=== PATIENT | male | born 1975 | race Caucasian/White ===

== ENCOUNTER 2020-06-27 18:35 | Emergency (ER) | payer OTHER ==
[~2020-06-27] VITALS: Ht 182.9 cm; Wt 181.4 kg
[~2020-06-27 18:35] MED LIST: ACETAMINOPHEN325 MG PO; Acidophilus La100 GM; CEFA250SU PO; CEPH500 PO; CLIN150 PO; CULTURELLE1 EACH PO; ERGO50000 PO; FURO20 PO; Flomax0.4 MG PO; HYDACE5 PO; HYDCHL25 PO; HYDR10 PO; IBUP800 PO; KETO10 PO; Keflex500 MG; OLME20 PO; OXYC1TAB11; PROM25 PO; Percocet 5-3251 EACH PO; Zofran Odt4 MG SL
[2020-06-27 19:05] LABS: BASOPHILS ABSOLUTE AUTO 0.09 K/mm3 (0.00-0.23); BASOPHILS PERCENT AUTO 1 % (0-2); EOSINOPHILS ABSOLUTE AUTO 0.22 K/mm3 (0.00-0.68); EOSINOPHILS PERCENT AUTO 2 % (0-6); Hematocrit 45.1 % (37.0-53.0); Hemoglobin 14.7 g/dL (13.5-17.5); IMMATURE GRAN ABSOLUTE AUTO 0.05 K/mm3 (0.00-0.10); IMMATURE GRAN PERCENT AUTO 0 % (0-1); LYMPHOCYTES ABSOLUTE AUTO 2.61 K/mm3 (0.84-5.20); LYMPHOCYTES PERCENT AUTO 20 % (21-46); MONOCYTES ABSOLUTE AUTO 0.86 K/mm3 (0.16-1.47); MONOCYTES PERCENT AUTO 7 % (4-13); Mean Corpuscular HGB 27.3 pg (26.0-34.0); Mean Corpuscular HGB Conc 32.6 g/dL (31.5-36.5); Mean Corpuscular Volume 84 fL (80-100); Mean Platelet Volume 11.7 fL (9.1-12.4); NEUTROPHILS ABSOLUTE AUTO 9.18 K/mm3 (1.96-9.15); NEUTROPHILS PERCENT AUTO 71 % (41-73); Platelet Count 240 K/mm3 (150-400); RDW Coefficient Variation 13.5 % (11.7-14.2); RDW Standard Deviation 41.2 fL (35.1-46.3); Red Blood Cell Count 5.39 M/mm3 (4.30-5.90); White Blood Cell Count 13.01 K/mm3 (4.00-11.30)
[2020-06-27 19:37] LABS: Alanine Aminotransfer (ALT/SGP 57 U/L (12-78); Albumin, Blood 3.5 g/dL (3.4-5.0); Albumin/Globulin Ratio 0.9 (0.8-1.8); Alk Phos 158 U/L (50-136); Anion Gap 9 mmol/L (6-16); Aspartate Aminotrans (AST/SGOT 23 U/L (12-37); Bilirubin, Total 0.3 mg/dL (0.1-1.0); Blood Urea Nitrogen 18 mg/dL (8-24); Bun/Creatinine Ratio 16.8 (12.0-20.0); CO2, Blood 22 mmol/L (21-32); Calcium, Blood 9.1 mg/dL (8.5-10.1); Chloride, Blood 110 mmol/L (98-108); Creatinine, Blood 1.07 mg/dL (0.60-1.20); Globulin, Blood 3.9 g/dL (2.2-4.0); Glomerular Filtration Rate >60 (60-); Glucose, Blood 375 mg/dL (70-99); Potassium, Blood 4.3 mmol/L (3.5-5.5); Sodium, Blood 141 mmol/L (136-145); Total Protein, Blood 7.4 g/dL (6.4-8.2)
[2020-06-27 22:49] LABS: Source, Urine Clean Catch
[2020-06-27 22:53] LABS: Bilirubin, Urine Neg (Neg); Blood, Urine Neg (Neg); Glucose Qualitative, Urine 4+ (Neg); Ketones, Urine Neg (Neg); Leukocyte Esterase, Urine Neg (Neg); Nitrite, Urine Neg (Neg); Protein, Urine 1+ (Neg); Urobilinogen, Urine NORM (Normal)
[2020-06-27 23:11] LABS: Color, Urine Yellow (P-Yellow)
[2020-06-27 23:13] LABS: Appearance, Urine Hazy (Clear); Bacteria Few /hpf; Red Blood Cells, Urine 0-2 /hpf (0-2); Squamous Epithelial Cells Few /hpf (Few)
== END 2020-06-27 23:47 | disposition home or self-care (01) ==
LOC: ER 18:35
PROVIDERS: Physician Assistant
DX: N20.0 Calculus of kidney (principal); I10 Essential (primary) hypertension; E66.01 Morbid (severe) obesity due to excess calories; Z68.43 Body mass index [BMI] 50.0-59.9, adult; Z88.0 Allergy status to penicillin; Z88.5 Allergy status to narcotic agent; Z88.8 Allergy status to other drugs, medicaments and biological substances; Z79.899 Other long term (current) drug therapy
CPT/HCPCS: 74176; 76770; 80053; 81001; 83690; 85025; 96374; 96375; 96376; 99284-25; A9270; A9270-GY; J1170; J1885; J2405; J7030

== ENCOUNTER → 2021-01-30 | Outpatient (CLI) | payer OTHER ==
[2021-01-30 10:06] LABS: Alanine Aminotransfer (ALT/SGP 51 U/L (12-78); Albumin, Blood 3.2 g/dL (3.4-5.0); Albumin/Globulin Ratio 0.8 (0.8-1.8); Alk Phos 173 U/L (50-136); Anion Gap 5 mmol/L (6-16); Aspartate Aminotrans (AST/SGOT 32 U/L (12-37); Bilirubin, Total 0.5 mg/dL (0.1-1.0); Blood Urea Nitrogen 13 mg/dL (8-24); Bun/Creatinine Ratio 14.3 (12.0-20.0); CO2, Blood 28 mmol/L (21-32); Calcium, Blood 8.6 mg/dL (8.5-10.1); Chloride, Blood 105 mmol/L (98-108); Creatinine, Blood 0.91 mg/dL (0.60-1.20); Globulin, Blood 3.9 g/dL (2.2-4.0); Glomerular Filtration Rate >60 (60-); Glucose, Blood 351 mg/dL (70-99); Potassium, Blood 4.3 mmol/L (3.5-5.5); Sodium, Blood 138 mmol/L (136-145); Total Protein, Blood 7.1 g/dL (6.4-8.2)
[2021-01-31 19:10] LABS: SEX HORM BINDING GLOB, SERUM 35.7 nmol/L (16.5-55.9)
== END | disposition home or self-care (01) ==
LOC: OLS 07:31 → LAB SHORT 07:31
PROVIDERS: Internal Medicine Endocrinology, Diabetes & Metabolism
DX: E29.1 Testicular hypofunction (principal); E11.9 Type 2 diabetes mellitus without complications
CPT/HCPCS: 36415; 80053; 83036; 84270; 84402; 84403

== ENCOUNTER 2021-04-15 11:52 | Inpatient (IN) | payer OTHER ==
[~2021-04-15] VITALS: Ht 182.9 cm; Wt 176.2 kg
[2021-04-15 13:16] LABS: BASOPHILS ABSOLUTE AUTO 0.11 K/mm3 (0.00-0.23); BASOPHILS PERCENT AUTO 1 % (0-2); EOSINOPHILS ABSOLUTE AUTO 0.04 K/mm3 (0.00-0.68); EOSINOPHILS PERCENT AUTO 0 % (0-6); Hematocrit 43.4 % (37.0-53.0); Hemoglobin 14.5 g/dL (13.5-17.5); IMMATURE GRAN ABSOLUTE AUTO 0.72 K/mm3 (0.00-0.10); IMMATURE GRAN PERCENT AUTO 3 % (0-1); LYMPHOCYTES ABSOLUTE AUTO 1.93 K/mm3 (0.84-5.20); LYMPHOCYTES PERCENT AUTO 9 % (21-46); MONOCYTES ABSOLUTE AUTO 1.23 K/mm3 (0.16-1.47); MONOCYTES PERCENT AUTO 6 % (4-13); Mean Corpuscular HGB 27.5 pg (26.0-34.0); Mean Corpuscular HGB Conc 33.4 g/dL (31.5-36.5); Mean Corpuscular Volume 82 fL (80-100); Mean Platelet Volume 10.2 fL (9.1-12.4); NEUTROPHILS ABSOLUTE AUTO 17.31 K/mm3 (1.96-9.15); NEUTROPHILS PERCENT AUTO 81 % (41-73); NRBC ABSOLUTE 0.09 K/mm3 (0.00-0.02); NRBC Auto 0.4 /100 WBC (0.0-0.2); Platelet Count 306 K/mm3 (150-400); RDW Coefficient Variation 14.1 % (11.7-14.2); RDW Standard Deviation 41.8 fL (35.1-46.3); Red Blood Cell Count 5.28 M/mm3 (4.30-5.90); White Blood Cell Count 21.34 K/mm3 (4.00-11.30)
[2021-04-15 13:29] LABS: PCO2 Arterial 30.6 mmHg (35-45); PO2 Arterial 71.2 mmHg (80-100); pH Blood Arterial 7.42 (7.35-7.45)
[2021-04-15] MEDS ORDERED: AMLO10 PO (13:31)
[2021-04-15] MEDS ORDERED: Clomiphene Citr50 MG PO (13:32)
[2021-04-15] MEDS ORDERED: VENLAFAXINE H37.5 M1 PO (13:32)
[2021-04-15] MEDS ORDERED: VITAMIN D31000 UNI1 PO (13:33)
[2021-04-15 13:56] LABS: C-REACTIVE PROTEIN, EXT RANGE 15.5 mg/dL (0.000-0.300)
[2021-04-15 14:04] LABS: Albumin, Blood 2.2 g/dL (3.4-5.0); Albumin/Globulin Ratio 0.4 (0.8-1.8); Bilirubin, Total 0.9 mg/dL (0.1-1.0); Bun/Creatinine Ratio 12.1 (12.0-20.0); Calcium, Blood 9.1 mg/dL (8.5-10.1); Creatinine, Blood 1.4 mg/dL (0.60-1.20); Globulin, Blood 5.1 g/dL (2.2-4.0); Potassium, Blood 3.8 mmol/L (3.5-5.5); Total Protein, Blood 7.3 g/dL (6.4-8.2)
--- NOTE | 2021-04-15 19:01 | NUR ---
ADMIT PT ARRIVED TO ICU 4 AT 1845. PT ALERT AND ORIENTED, VERY TALKATIVE. WEARING BIPAP. DESATS TO 88% WHEN TALKING, BUT GOES BACK UP TO LOW 90S WHEN QUIET. SR, BP STABLE. IV FLUIDS STARTED. WILL GIVE REPORT TO ONCOMING SHIFT.
[2021-04-15 20:04] LABS: International Normalized Ratio 1.25; Prothrombin Time Results 13.3 Sec (9.7-11.5)
[2021-04-15 22:25] LABS: Source, Urine Clean Catch
[2021-04-15 22:27] LABS: Appearance, Urine Hazy (Clear); Blood, Urine 2+ (Neg); Color, Urine Amber (P-Yellow); Glucose Qualitative, Urine Neg (Neg); Ketones, Urine Neg (Neg); Leukocyte Esterase, Urine 1+ (Neg); Nitrite, Urine Neg (Neg); Protein, Urine 3+ (Neg); Urobilinogen, Urine 1+ (Normal)
[2021-04-15 22:29] LABS: Bilirubin, Urine 1+ (Neg)
[2021-04-15 22:35] LABS: Red Blood Cells, Urine 0-2 /hpf (0-2)
[2021-04-15 22:36] LABS: Bacteria Many /hpf; Granular Casts 0-2 /lpf (0); Hyaline Casts 0-2 /lpf (0-2); Squamous Epithelial Cells Not Seen /hpf (Few); WBC Cast 0-2 /lpf (0)
[2021-04-16 02:24] LABS: BASOPHILS ABSOLUTE AUTO 0.07 K/mm3 (0.00-0.23); BASOPHILS PERCENT AUTO 0 % (0-2); EOSINOPHILS ABSOLUTE AUTO 0.12 K/mm3 (0.00-0.68); EOSINOPHILS PERCENT AUTO 1 % (0-6); Hematocrit 40.7 % (37.0-53.0); Hemoglobin 13.6 g/dL (13.5-17.5); IMMATURE GRAN ABSOLUTE AUTO 0.31 K/mm3 (0.00-0.10); IMMATURE GRAN PERCENT AUTO 2 % (0-1); LYMPHOCYTES ABSOLUTE AUTO 2.24 K/mm3 (0.84-5.20); LYMPHOCYTES PERCENT AUTO 14 % (21-46); MONOCYTES ABSOLUTE AUTO 0.75 K/mm3 (0.16-1.47); MONOCYTES PERCENT AUTO 5 % (4-13); Mean Corpuscular HGB 27.3 pg (26.0-34.0); Mean Corpuscular HGB Conc 33.4 g/dL (31.5-36.5); Mean Corpuscular Volume 82 fL (80-100); Mean Platelet Volume 10.1 fL (9.1-12.4); NEUTROPHILS ABSOLUTE AUTO 13.04 K/mm3 (1.96-9.15); NEUTROPHILS PERCENT AUTO 79 % (41-73); NRBC ABSOLUTE 0.05 K/mm3 (0.00-0.02); NRBC Auto 0.3 /100 WBC (0.0-0.2); Platelet Count 262 K/mm3 (150-400); RDW Coefficient Variation 14.3 % (11.7-14.2); Red Blood Cell Count 4.99 M/mm3 (4.30-5.90); White Blood Cell Count 16.53 K/mm3 (4.00-11.30)
--- NOTE | 2021-04-16 02:29 | NUR ---
AT APROX 2000 PATIENT C/O NAUSEA AND "HEART BURN" DOCTOR TARIQ NOTIFIED AND ORDER OBTAINED FOR PROTONIX, AND OK TO OBTAIN ECHO IN THE MORNING. AT APROX 2100 PATIENT REMOVED BIPAP WITH RT AND PLACED ON 12L/OXY PATIENT HAD 300 CC OF BROWN BILE EMESES AND CONTINUES TO FEEL NAUSEA WITH DRY EAVES. DUE TO DESATING CHANGED TO AIRVO 60L FIO2 60% WITH BIOX 90-93% RESP 30-40. DOCTOR TARIQ GIVEN UPDATE AND NOTIFIED OF PATIENT NOT BEING ABLE TO WEAR BIPAP DUE TO N/V. ZOFRAN INCREASED TO Q4HR. HEPARIN DRIP INFUSING PER PHARMACY. AT 0100 PATIENT VERBALIZED HE IS FEELING BETTER AND ABLE TO ATTEMPT BIPAP AGAIN. PATIENT NOW RESTING QUIETLY WITH BIPAP 11/6 FIO2 60% IN PLACE WITH BIOX 94-96% PATIENT RESP CONTINUE TO BE 30-40'S EVEN WHEN SLEEPING, AWAKENS TO SLIGHT STIMULI.
[2021-04-16 02:43] LABS: Alanine Aminotransfer (ALT/SGP 175 U/L (12-78); Albumin, Blood 2.2 g/dL (3.4-5.0); Albumin/Globulin Ratio 0.5 (0.8-1.8); Alk Phos 78 U/L (50-136); Anion Gap 9 mmol/L (6-16); Aspartate Aminotrans (AST/SGOT 260 U/L (12-37); Bilirubin, Total 0.7 mg/dL (0.1-1.0); Blood Urea Nitrogen 19 mg/dL (8-24); Bun/Creatinine Ratio 16.5 (12.0-20.0); CO2, Blood 25 mmol/L (21-32); Calcium, Blood 8.7 mg/dL (8.5-10.1); Chloride, Blood 105 mmol/L (98-108); Creatinine, Blood 1.15 mg/dL (0.60-1.20); Globulin, Blood 4.5 g/dL (2.2-4.0); Glomerular Filtration Rate >60 (60-); Glucose, Blood 237 mg/dL (70-99); Magnesium, Blood 2.1 mg/dL (1.6-2.4); Potassium, Blood 3.7 mmol/L (3.5-5.5); Sodium, Blood 139 mmol/L (136-145); Total Protein, Blood 6.7 g/dL (6.4-8.2)
[2021-04-16 05:10] LABS: PCO2 Arterial 38.1 mmHg (35-45); PO2 Arterial 72.6 mmHg (80-100); pH Blood Arterial 7.45 (7.35-7.45)
--- NOTE | 2021-04-16 07:19 | NUR ---
SUMMARY PATIENT WITH BIPAP 14/6 FIO2 80% IN PLACE, SLEEPING LIGHTLY T/O MOST OF THE NIGHT. SHORT BREAK FROM BIPAP ON AIRVO 60L FIO2 80% THIS MORNING FOR ORAL CARE AND TO WASH FACE. RAFITA TO FOREHEAD WITH FOAM DRESSING CD&I. PATIENT VERBALIZED NAUSEA BETTER, BUT CONTINUES TO HAVE A SLIGHT FEELING OF HEART BURN. HEPARIN DRIP CONTINUES PER PHARMACY.
--- NOTE | 2021-04-16 07:52 | NUR ---
ASSUMED CARE BEDSIDE REPORT RECIEVED. PT IS LAYING IN BED AWAKE, ALERT, AND ORIENTED. PT ANSWERS QUESTIONS APPROPRIATELY. PT DENIES PAIN, SOB AT REST, OR NAUSEA AT THIS TIME. BIPAP IN PLACE /, FIO2 80%. VITAL SIGNS STABLE. HEPARIN GTT INFUSING AT 17 UNITS/KG/HR AND NS TKO. SABA TEMP PROBE IN PLACE WITH DARK YELLOW URINE OUTPUT NOTED. WILL CONTINUE TO MONITOR.
--- NOTE | 2021-04-16 12:10 | NUR ---
Echocardiogram completed.
--- NOTE | 2021-04-16 19:45 | NUR ---
ASSUMED CARE OF PATIENT AT APPROX 1445; THIS RN AGREES WITH THE PREVIOUS TELECOM FIELD TECHNICIAN. LS REMAIN DIM WITH COARSE IN THE BASES. PT REMAIN ON BIPAP, APPEARS TO TOLERATE IT WELL. PT "SLIGHTLY NAUSOUS, MEDCIATED PER EMAR. ELEVATED NOTED, OTHER VSS. NO OTHER ACUTE CHANGES NOTED. REPORT GIVEN TO ONCOMING RN.
--- NOTE | 2021-04-16 23:12 | NUR ---
SHIFT ASSESSMENT ASSUMED CARE OF PT @ 1900, REPORT FROM INESSA HERRING. PT ALERT AND ORIENTED. SKIN OVERALL C/D/I, DRESSING COVERING WOUND ON NOSE CLEAN. FOLLOWING ALL COMMANDS. PT DENIES DISCOMFORT. PT NPO, WATER AT BEDSIDE FOR MOUTH RINSING. ON BIPAP-14/8 @ 70% c O2 SATS >90%. HEPARIN GTT CHANGED BY PHARMACY TO 21U/KG/HR, CONFIRMED RATE ADJUST WITH EDDIE CRAWFORD. TEMP SABA CATH PATENT, DRAINING YELLOW URINE. CALL LIGHT WITHIN REACH.
[2021-04-17 03:18] LABS: PO2 Arterial 84.7 mmHg (80-100)
[2021-04-17 03:23] LABS: BASOPHILS ABSOLUTE AUTO 0.04 K/mm3 (0.00-0.23); BASOPHILS PERCENT AUTO 0 % (0-2); EOSINOPHILS ABSOLUTE AUTO 0.02 K/mm3 (0.00-0.68); EOSINOPHILS PERCENT AUTO 0 % (0-6); Hematocrit 39.3 % (37.0-53.0); Hemoglobin 12.5 g/dL (13.5-17.5); IMMATURE GRAN ABSOLUTE AUTO 0.54 K/mm3 (0.00-0.10); IMMATURE GRAN PERCENT AUTO 3 % (0-1); LYMPHOCYTES PERCENT AUTO 9 % (21-46); MONOCYTES ABSOLUTE AUTO 1.15 K/mm3 (0.16-1.47); MONOCYTES PERCENT AUTO 6 % (4-13); Mean Corpuscular HGB 26.9 pg (26.0-34.0); Mean Corpuscular HGB Conc 31.8 g/dL (31.5-36.5); Mean Corpuscular Volume 85 fL (80-100); Mean Platelet Volume 10.4 fL (9.1-12.4); NEUTROPHILS PERCENT AUTO 82 % (41-73); NRBC ABSOLUTE 0.02 K/mm3 (0.00-0.02); NRBC Auto 0.1 /100 WBC (0.0-0.2); Platelet Count 293 K/mm3 (150-400); RDW Coefficient Variation 14.5 % (11.7-14.2); RDW Standard Deviation 44.1 fL (35.1-46.3); Red Blood Cell Count 4.65 M/mm3 (4.30-5.90); White Blood Cell Count 18.55 K/mm3 (4.00-11.30)
[2021-04-17 03:42] LABS: Alanine Aminotransfer (ALT/SGP 150 U/L (12-78); Albumin, Blood 2.1 g/dL (3.4-5.0); Albumin/Globulin Ratio 0.5 (0.8-1.8); Alk Phos 75 U/L (50-136); Anion Gap 11 mmol/L (6-16); Aspartate Aminotrans (AST/SGOT 92 U/L (12-37); Bilirubin, Total 0.7 mg/dL (0.1-1.0); Blood Urea Nitrogen 15 mg/dL (8-24); Bun/Creatinine Ratio 16.1 (12.0-20.0); CO2, Blood 24 mmol/L (21-32); Calcium, Blood 8.1 mg/dL (8.5-10.1); Chloride, Blood 105 mmol/L (98-108); Creatinine, Blood 0.93 mg/dL (0.60-1.20); Globulin, Blood 4.4 g/dL (2.2-4.0); Glomerular Filtration Rate >60 (60-); Glucose, Blood 274 mg/dL (70-99); Magnesium, Blood 2.1 mg/dL (1.6-2.4); Phosphorus, Blood 2.2 mg/dL (2.5-4.9); Potassium, Blood 3.5 mmol/L (3.5-5.5); Sodium, Blood 140 mmol/L (136-145); Total Protein, Blood 6.5 g/dL (6.4-8.2)
--- NOTE | 2021-04-17 06:52 | NUR ---
SHIFT SUMMARY PT REMAINS ALERT AND ORIENTED. TOLERATING THE BIPAP WELL. GIVEN MULTIPLE BREAKS T/O THE NIGHT, ABLE TO TOLERATE AIRVO FOR ABOUT 10 MINUTES BEFORE REQUESTING THE BIPAP. PT SHIFTING HIPS, TURNING GENTLY FROM SIDE TO SIDE, AT THIS TIME NOT WILLING TO TOLERATE HARD TURNS. PT USING REDIPORT SUCTION FOR BIPAP, MODERATE AMNT WHITE SECRETIONS. SABA CATH DRAINING DARK URINE. NO BM DURING THE NIGHT.
--- NOTE | 2021-04-17 08:21 | NUR ---
ORDERS GIVEN FROM DR. FARRAR TO SWITCH FROM HEPARIN GTT TO XARELTO, DISCUSSED WITH DR. FARRAR AND WITH PHARMACY, WILL TURN OF HEPARIN GTT 2 HRS AFTER XARELTO GIVEN.
--- NOTE | 2021-04-17 08:26 | NUR ---
PT ASSISTED TO RECLINER, TOLERATED WELL WITH STANDBY ASSIST FOR LINE MANAGEMENT. PT IS ALERT AND ORIENTED, COOPERATIVE WITH CARE. DISCUSSED IMPORTANCE OF REPOSITIONING TO PRONE, SIDE TO SIDE, AND UP TO RECLINER FOR MAKING PROGRESS DURING HOSPITALIZATION FOR COVID. PT AGREED TO STAY UP IN RECLINER TOLERATED. PT SWITCHED OVER TO AIRVO WITH RT AT BEDSIDE, TOLERATING WELL WITH O2 SATS OF >95% AT THIS TIME. PT DENIES NAUSEA AT THIS TIME.
--- NOTE | 2021-04-17 17:58 | NUR ---
SHIFT SUMMARY NO ACUTE EVENTS THIS SHIFT. PT STAYED UP IN RECLINER UNTIL AFTER LUNCH, THEN REQUESTED TO GET BACK TO BED. PT WAS ABLE TO TOLERATE AIRVO FOR REST OF SHIFT WITH O2 SATS REMAINING >90%. PT'S BLOOD SUGAR WAS ELEVATED THIS SHIFT, DR. FARRAR NOTIFIED WITH CBG OF 425 AND 430, INSULIN ORDERS GIVEN AND ADMINISTERED PER EMAR. PT DENIED PAIN THIS SHIFT, COMPLAINED ONLY OF SORENESS ON COCCYX WHEN IN RECLINER WHICH WAS RELIEVED WITH REPOSITIONING WITH PILLOWS. PT WAS ABLE TO GO TO THE BATHROOM WITH STANDBY ASSIST FOR LINE MANAGEMENT. PT HAD LOOSE BROWN BOWEL MOVEMENT, RED BLOOD WAS NOTED ON TOILET PAPER BUT NO BLOOD NOTED IN STOOL. PT STATED HISTORY OF HEMORRHOIDS. DR. POTTER NOTIFIED, ORDERS FOR ANUSOL CREAM GIVEN.
[2021-04-17 20:37] LABS: Vancomycin, Trough 21.6 ug/mL (5.0-10.0)
--- NOTE | 2021-04-17 22:03 | NUR ---
CARE ASSUMED PT ALERT AND ORIENTED. INITIALLY ON AIRVO 60L AND 50% FIO2. SWITCHED TO BIPAP @2130 14/6 50% FIO2. PT USING REDIPORT SUCTION TO REMOVE SECRETIONS. VSS. O2 SATS MAINTAINING OVER 93%. HR NSR IN 80'S AND 90'S. NO PAIN OR DISTRESS AT THIS TIME. WILL CONTINUE TO MONITOR
[2021-04-18 03:43] LABS: BASOPHILS ABSOLUTE AUTO 0.03 K/mm3 (0.00-0.23); BASOPHILS PERCENT AUTO 0 % (0-2); EOSINOPHILS PERCENT AUTO 0 % (0-6); Hematocrit 39.8 % (37.0-53.0); Hemoglobin 12.7 g/dL (13.5-17.5); IMMATURE GRAN ABSOLUTE AUTO 0.26 K/mm3 (0.00-0.10); IMMATURE GRAN PERCENT AUTO 2 % (0-1); LYMPHOCYTES ABSOLUTE AUTO 1.28 K/mm3 (0.84-5.20); LYMPHOCYTES PERCENT AUTO 8 % (21-46); MONOCYTES ABSOLUTE AUTO 1.03 K/mm3 (0.16-1.47); MONOCYTES PERCENT AUTO 7 % (4-13); Mean Corpuscular HGB 27.2 pg (26.0-34.0); Mean Corpuscular HGB Conc 31.9 g/dL (31.5-36.5); Mean Corpuscular Volume 85 fL (80-100); Mean Platelet Volume 10.1 fL (9.1-12.4); NEUTROPHILS ABSOLUTE AUTO 13.21 K/mm3 (1.96-9.15); NEUTROPHILS PERCENT AUTO 84 % (41-73); Platelet Count 273 K/mm3 (150-400); RDW Coefficient Variation 14.6 % (11.7-14.2); RDW Standard Deviation 44.9 fL (35.1-46.3); Red Blood Cell Count 4.67 M/mm3 (4.30-5.90); White Blood Cell Count 15.81 K/mm3 (4.00-11.30)
[2021-04-18 04:01] LABS: Alanine Aminotransfer (ALT/SGP 130 U/L (12-78); Albumin, Blood 2.1 g/dL (3.4-5.0); Albumin/Globulin Ratio 0.5 (0.8-1.8); Alk Phos 80 U/L (50-136); Anion Gap 7 mmol/L (6-16); Aspartate Aminotrans (AST/SGOT 46 U/L (12-37); Bilirubin, Total 0.6 mg/dL (0.1-1.0); Blood Urea Nitrogen 16 mg/dL (8-24); CO2, Blood 26 mmol/L (21-32); Calcium, Blood 8.3 mg/dL (8.5-10.1); Chloride, Blood 107 mmol/L (98-108); Globulin, Blood 4.4 g/dL (2.2-4.0); Glomerular Filtration Rate >60 (60-); Glucose, Blood 374 mg/dL (70-99); Magnesium, Blood 2.2 mg/dL (1.6-2.4); Phosphorus, Blood 2.5 mg/dL (2.5-4.9); Potassium, Blood 4.2 mmol/L (3.5-5.5); Sodium, Blood 140 mmol/L (136-145); Total Protein, Blood 6.5 g/dL (6.4-8.2)
[2021-04-18 05:40] LABS: PCO2 Arterial 43.2 mmHg (35-45); pH Blood Arterial 7.41 (7.35-7.45)
[2021-04-18 05:41] LABS: PO2 Arterial 83.7 mmHg (80-100)
--- NOTE | 2021-04-18 06:38 | NUR ---
SHIFT SUMMARY PT ALERT AND ORIENTED X4. NO ACUTE EVENTS THIS SHIFT. O2 SATS MAINTAINING OVER 93% THROUGHOUT NIGHT WHILE ON BIPAP 14/6 AND 50% FIO2. TITRATED DOWN TO 40% FIO2. SWITCHED TO AIRVO 60L AND 40% FIO2 AT 0630. HR IN 70'S-80'S NSR. PT STATES ONLY A COUPLE HOURS OF SLEEP. CBG OF 374 AT 0337. HIGH B/P THIS EVENING, 170/85 AT 0609. LEFT IN BED AWAKE AND RESTING WITH CALL ALARM AT SIDE.
--- NOTE | 2021-04-18 10:04 | NUR ---
PHYSICIAN UPDATE PHYSICIAN UPDATED ON PT'S HYPERTENSIVE STATE. ORDERS PROVIDED, SEE EMAR.
--- NOTE | 2021-04-18 12:15 | NUR ---
PHYSICIAN UPDATE NOTIFIED PHYSICIAN OF PT'S HIGH BLOOD SUGAR. NO ORDERS AT THIS TIME.
--- NOTE | 2021-04-18 16:40 | NUR ---
PHYSICIAN NOTIFIED PHYSICIAN NOTIFIED OF PT'S CBG LEVEL. ORDERS TO PROIVDE ADDITIONAL 10 UNITS OF LANTUS AT THIS TIME.
--- NOTE | 2021-04-18 17:51 | NUR ---
SHIFT SUMMARY PT ALERT AND ORIENTED X 4. HR STABLE. BP HYPERTENSIVE AT TIMES. PHYSICIAN AWARE, ORDERS PROVIDED. OXYGEN SATRUATION MAINTAINED ABOVE 92% ON AIRVO AT 60 L AND 50% FIO2. PT SBA TO BATHROOM. SABA PATENT AND DRAINING. PT IN CHAIR THIS AFTERNOON. FRIEND AT BEDSIDE THIS EVENING. WILL CONT TO MONITOR UNTIL REPORT GIVEN TO NIGHTSHIFT RN.
[2021-04-19 03:35] LABS: BASOPHILS ABSOLUTE AUTO 0.03 K/mm3 (0.00-0.23); BASOPHILS PERCENT AUTO 0 % (0-2); EOSINOPHILS ABSOLUTE AUTO 0.07 K/mm3 (0.00-0.68); EOSINOPHILS PERCENT AUTO 1 % (0-6); Hematocrit 40.4 % (37.0-53.0); IMMATURE GRAN ABSOLUTE AUTO 0.28 K/mm3 (0.00-0.10); IMMATURE GRAN PERCENT AUTO 2 % (0-1); LYMPHOCYTES ABSOLUTE AUTO 1.59 K/mm3 (0.84-5.20); LYMPHOCYTES PERCENT AUTO 11 % (21-46); MONOCYTES ABSOLUTE AUTO 0.97 K/mm3 (0.16-1.47); MONOCYTES PERCENT AUTO 7 % (4-13); Mean Corpuscular HGB 27.3 pg (26.0-34.0); Mean Corpuscular HGB Conc 32.2 g/dL (31.5-36.5); Mean Corpuscular Volume 85 fL (80-100); NEUTROPHILS ABSOLUTE AUTO 11.67 K/mm3 (1.96-9.15); NEUTROPHILS PERCENT AUTO 80 % (41-73); Platelet Count 286 K/mm3 (150-400); RDW Coefficient Variation 14.6 % (11.7-14.2); RDW Standard Deviation 44.2 fL (35.1-46.3); Red Blood Cell Count 4.77 M/mm3 (4.30-5.90); White Blood Cell Count 14.61 K/mm3 (4.00-11.30)
[2021-04-19 03:44] LABS: Base Excess Venous 7.8 mmol/L; Bicarbonate Venous 30.2 mmol/L (24.0-30.0); PCO2 Venous 49.5 mmHg (38-42); PO2 Venous 65.1 mmHg (38-42); pH Blood Venous 7.42 (7.34-7.37)
[2021-04-19 03:56] LABS: Alanine Aminotransfer (ALT/SGP 104 U/L (12-78); Albumin, Blood 2.2 g/dL (3.4-5.0); Albumin/Globulin Ratio 0.5 (0.8-1.8); Alk Phos 77 U/L (50-136); Anion Gap 4 mmol/L (6-16); Aspartate Aminotrans (AST/SGOT 34 U/L (12-37); Bilirubin, Total 0.4 mg/dL (0.1-1.0); Blood Urea Nitrogen 18 mg/dL (8-24); Bun/Creatinine Ratio 22.6 (12.0-20.0); CO2, Blood 31 mmol/L (21-32); Calcium, Blood 8.7 mg/dL (8.5-10.1); Chloride, Blood 104 mmol/L (98-108); Globulin, Blood 4.1 g/dL (2.2-4.0); Glomerular Filtration Rate >60 (60-); Glucose, Blood 347 mg/dL (70-99); Magnesium, Blood 2.1 mg/dL (1.6-2.4); Sodium, Blood 139 mmol/L (136-145); Total Protein, Blood 6.3 g/dL (6.4-8.2)
--- NOTE | 2021-04-19 06:10 | NUR ---
SHIFT SUMMARY PATIENT FOUND TO BE A PLEASANT MAN WHO IS A&OX4 WITH SOME GENERALIZED WEAKNESS. UP SBA IN ROOM. VSS. AT START OF SHIFT ON AIRVO 60L, 50% AND SWITCHED TO BIPAP FOR SLEEP WITH 14/6 50% SETTINGS SATING MID 90'S ALL NIGHT. TACHYPENIC. ORAL SUCTION FOR SINUS DRAINAGE PRN. NSR ON THE MONITOR. NO PAIN OR DISTRESS NOTED UPON ASSESSMENT. FEELS HAPPY WITH HIS IMPROVEMENTS. GOOD APPETITE AND ORAL INTAKE IMPROVING. SOME DIARHEA NOTED BUT PATIENT SAYS NORMAL FOR HIM. WILL KEEP AN EYE ON THIS. SABA DRAINING TO GRAVITY WITH GOOD OUTPUT. NIGHTLY SUGAR CHECK HIGH AT 493 AND ADJUSTED TO HIGH DOSE CORRECTION SCALE PER MD ORDER. NO ACUTE CONCERNS AT THIS TIME. WILL CONTINUE TO MONITOR UNTIL REPORT GIVEN TO DAYSHIFT RN.
--- NOTE | 2021-04-19 08:13 | NUR ---
pt having a bed bath and up to chair, was able to stand and move to chair indep with lines mangaged, a/ox3, pleasant and cooperative with care, follows commands well, denies pain, states he's breathing ok, lungs have some wheezing in upper airways, dim in bases, resp even and unlabored at this time, currently on airvo at 60liters and 50%, no cough noted at this time, he reports an occ productive cough of clear sputum, hrr, monitor in place running st in low 100's, trace edema noted to b/l le ppp+1, cap refill <3sec, vs stable, afebrile, iv sites are clear and patent, btx4, abd large soft nontender, reports reg bm's, harmon cath draining clear yellow urine, skin has marty to mid forehead secondary to fall at home, otherwise c/d/i, vj fung, call light in reach.
--- NOTE | 2021-04-19 10:40 | NUR ---
pt up to bathroom, o2 was turned down to 45liters by rt, he did desat to 85 while up, turned him up to 60liters until back in chair, will be moving him to pcu soon. call light in reach.
--- NOTE | 2021-04-19 11:12 | NUR ---
report was given to Melita HERRING, pt being taken to pcu via wheelchair with before school babysitter's in attendence. all belongings are going with him.
--- NOTE | 2021-04-19 17:35 | NUR ---
SHIFT SUMMARY PT ARRIVED FROM ICU TODAY. PT IS ON AIRVO 60L 45% FIO2. PT HAS MAINTAINED SATURATION AT 92% AND ABOVE, HE DOES DESATURATED WITH ACTIVITY BUT RECOVERS QUICKLY. PT IS ABLE TO MOVE THROUGHOUT THE ROOM WELL BUT NEEDS HELP MANAGING HIS LINES. PT IS ALERT AND ORIENTED. PT HAS HAD HIGH BP TODAY AND WAS ADMINISTERED ARPESOLINE WHICH WAS EFFECTIVE. PT HAS ALSO HAD HIGH CBG, INSULIN HAS BEEN ADJUSTED AND PT HAS REQUESTED MORE ADA FRIENDLY FOODS THROUGHOUT THE DAY. PT IS IN HIS BED HAVING DINNER AT THIS TIME
--- NOTE | 2021-04-19 20:15 | NUR ---
PT IS ALERT AND ORIENTED, IN HIGH SEMI FOWLERS POSITION IN BED. PT IS PLEASANT WITH CARE. PT HAS RAFITA TO HIS FOREHEAD, CD&I - PT REMOVED THE DRESSING, OPEN TO AIR. PT DENIES HEADACHE, CHEST PAIN, NAUSEA, OR NUMBNESS/TINGLING. PT REPORTS MILD SOB. PT REPORTS THAT HE FEELS "TIRED." SABA IS DRAINING CLEAR YELLOW URINE. AIRVO SETTINGS 60L, 45% FIO2. CALL LIGHT WITHIN REACH. BED IN LOW POSITION. FLUIDS AT BEDSIDE.
[2021-04-20 04:24] LABS: Anion Gap 3 mmol/L (6-16); Blood Urea Nitrogen 21 mg/dL (8-24); Bun/Creatinine Ratio 24.2 (12.0-20.0); CO2, Blood 32 mmol/L (21-32); Calcium, Blood 8.5 mg/dL (8.5-10.1); Chloride, Blood 102 mmol/L (98-108); Creatinine, Blood 0.87 mg/dL (0.60-1.20); Glomerular Filtration Rate >60 (60-); Glucose, Blood 291 mg/dL (70-99); Potassium, Blood 3.9 mmol/L (3.5-5.5); Sodium, Blood 137 mmol/L (136-145)
--- NOTE | 2021-04-20 06:39 | NUR ---
SHIFT SUMMARY - NO ACUTE CHANGES THROUGHOUT THIS SHIFT. PT AMBULATED TO [facility] WITH A SBA THIS AM - TOLERATED AMBULATION WITHOUT DIFFICULTY. PT HAS DENIED ANY COMPLAINTS OF PAIN/DISCOMFORT THROUGHOUT THIS SHIFT. FLUIDS AT BEDSIDE. CALL LIGHT WITHIN REACH. BED IN LOW POSITION.
--- NOTE | 2021-04-20 18:48 | NUR ---
SHIFT SUMMARY PT HAS BEEN PLEASANT, ALERT AND ORIENTED IN THE ROOM TODAY. PT CONTINUES TO HAVE ELEVATED CBG'S AND IS MEDICATED PER EMAR. RN SHOULD COORDINATE WITH THE KITCHEN/DIETARY TO PROVIDE LOWER CARB MEALS BUT STILL ADEQUATE PORTIONS. PT HAS SABA PATENT AND DRAINING. PT CONTINUES TO REQUIRE HIGH FLOW O2 BUT HAS MAINTAINED SATURATION. VS STABLE AT THIS TIME.
[2021-04-21 04:21] LABS: Anion Gap 3 mmol/L (6-16); Blood Urea Nitrogen 23 mg/dL (8-24); Bun/Creatinine Ratio 25.8 (12.0-20.0); CO2, Blood 32 mmol/L (21-32); Calcium, Blood 8.8 mg/dL (8.5-10.1); Chloride, Blood 102 mmol/L (98-108); Creatinine, Blood 0.89 mg/dL (0.60-1.20); Glomerular Filtration Rate >60 (60-); Glucose, Blood 236 mg/dL (70-99); Sodium, Blood 137 mmol/L (136-145)
--- NOTE | 2021-04-21 06:25 | NUR ---
HOURLY CAREGIVER SUMMARY PT HAS MAINTAINED O2 SATS >94% ON BIPAP 35% FIO2 ALL SHIFT. PT HAS DENIED ANY PAIN OR NAUSEA THS SHIFT. BP HAS BEEN WNL AND STABLE. TELE SHOWIN SR 70'S WHILE AWAKE AND SB LOW 57 WHEN ASLEEP. PT REPORTS FEELING MUCH BETTER TODAY BUT IS AFRAID OF BEING DC'D BEFORE HE IS READY. WILL REPORT TO ONCOMING RN.
--- NOTE | 2021-04-21 17:41 | NUR ---
SHIFT SUMMARY; ASSUMED CARE AT 0700, A/A/OX4 THROUGHOUT SHIFT. REPOSITONS SELF IN BED, SBA TO BATHROOM. DYSPNEA WITH EXERTION WITH RECOVERY WITHIN 5 MINS. SATS 93%, REMAINS ON AIR VO 55L 35%. SABA CATH IN PLACE DRAINING CLEAR YELLOW URINE. INSULIN COVERAGE PER EMAR. WILL CONTINUE TO MONITOR AND TREAT UNTIL CHANGE OF SHIFT.
--- NOTE | 2021-04-22 05:46 | NUR ---
MELTING SUPERVISOR SUMMARY PT HAS MAINTAINED O2 SATS >94% ON BIPAP W 35% FIO2 ALL SHIFT. PT HAS DENIED ANY PAIN OR NAUSEA THIS SHIFT. TELE HAS SHOWN SR 60'S W SB LOW 49 WHILE ASLEEP. BP WNL AND STABLE. PT AFEBRILE THIS SHIFT. WILL REPORT TO ONCOMING RN.
--- NOTE | 2021-04-22 18:36 | NUR ---
SHIFT SUMMARY PT AOX4; 1P ASSIST. PT IS A PCU TRANSFER AND COVID POSITIVE; PT ON 2L OF O2, SATS WNL. PT HAS HX OF DVT,DM,DEMI, AND OBESITY. PT COMPLETED DECADRON AND REMDESIVIR. PT WAS ON AIRVO THIS AM AND NOW ON 2L OF OXYMIZER . PT IS ON ADA DIET. RECEIVED REPORT FROM THE ARTIFICIAL SNOW MAKING MACHINE OPERATOR. POWERGLNICHOLAS ON LAMINE. NO TELE. PT HAS SABA DRAINING AND PATENT. AC/HS. BED IS IN THE LWOEST POSITION AND EX AT BEDSIDE. CALL LIGHT WITHIN REACH
--- NOTE | 2021-04-22 19:18 | NUR ---
PT DOWNGRADED TO MED NO TELE, AT 1326 PT REPORTED SLIGHT EPISTAXIS AND VERBALLY ATTRIBUTED IT TO THE HIGH FLOW OXYGEN, FIO2 TITRATED TO 30% AND EVENTUALLY AT 1611 TITRATED TO 2L VIA OXIMIZER, PT REQUESTED ADA FOODS FOR EACH MEAL, PT DENIES CONCERNS AT THIS TIME, REPORT GIVEN TO NEAVEH HE AT 1534 VIA PHONE, PT TRANSPORTED TO ROOM 308 AT 1803 VIA WHEELCHAIR WITH OXYGEN THERAPY, NO TELEMETRY, AND NO IV INFUSIONS
--- NOTE | 2021-04-23 05:11 | NUR ---
SHIFT SUMMARY: AOX4. ABLE TO GET UP TO THE BATHROOM INDEPENDENT. SABA CATH PATIENT AND DRAINING. BM NORMAL LAST NIGHT. RASH TO GROIN AND PANUS CLEANSED AND NYSTATIN POWDER TO IT. NO PAIN. SOB NOTED WITH EXERTION, STANDING DROPS TO 87-89%, WHEN HE WALKED TO THE BATHROOM HE WAS OFF O2 WHILE I EXTENDED THE LINE, HE DROPPED TO 79%, RECOVERY WAS LESS THAN 1 MINUTE. ONLY ON 2 LITERS NC NOW. ENCOURAGD SLOW MOVEMENTS AND WORKING WITH HIS BREATHING ENDURANCE. HE IS HOPEING TO GET OFF THE CATHETER AND OFF THE O2 SO HE CAN GET HIS LIFE BACK. NO PAIN. SLEPT WELL T/O THE NIGHT. VS WNL. CALL LIGHT HAS BEEN IN REACH.
[2021-04-23] MEDS ORDERED: DECADRON6 M1 PO (12:08)
[2021-04-23] MEDS ORDERED: INSULANPEN SC (12:09)
[2021-04-23] MEDS ORDERED: LISI20 PO (12:11)
[2021-04-23] MEDS ORDERED: XARELTO15 MG PO (12:11)
--- NOTE | 2021-04-23 16:59 | NUR ---
DISCHARGED:home with family, reviewed stay, medications, instructions and appointments, pg removed with no difficulty, reviewed instructions on oxygen, encouraged pt to call if troubles or concerns arose
== END 2021-04-23 16:49 | disposition home health service (06) | DRG 871 ==
LOC: ER 11:52 → ICUE 14:11 → ERHOLD 14:11 → ICUE 18:47 → PCU 04-19 11:19 → MEDS 04-22 18:04
PROVIDERS: Emergency Medicine; Family Medicine; Internal Medicine; Internal Medicine Pulmonary Disease; Nurse Practitioner Acute Care; Physician Assistant; ADMIT Internal Medicine
PROC: 0HQ1XZZ Repair Face Skin, External Approach (ICD-10-PCS; principal; 2021-04-15)
PROC: XW033E5 Introduction of Remdesivir Anti-infective into Peripheral Vein, Percutaneous Approach, New Technology Group 5 (ICD-10-PCS; 2021-04-15)
PROC: 5A09457 Assistance with Respiratory Ventilation, 24-96 Consecutive Hours, Continuous Positive Airway Pressure (ICD-10-PCS; 2021-04-15)
PROC: 8E0ZXY6 Isolation (ICD-10-PCS; 2021-04-15)
PROC: 3E0333Z Introduction of Anti-inflammatory into Peripheral Vein, Percutaneous Approach (ICD-10-PCS; 2021-04-16)
DX: A41.89 Other specified sepsis (principal); U07.1 COVID-19; J12.82 Pneumonia due to coronavirus disease 2019; J96.01 Acute respiratory failure with hypoxia; I26.94 Multiple subsegmental thrombotic pulmonary emboli without acute cor pulmonale; E66.2 Morbid (severe) obesity with alveolar hypoventilation; Z68.43 Body mass index [BMI] 50.0-59.9, adult; I82.442 Acute embolism and thrombosis of left tibial vein; N17.9 Acute kidney failure, unspecified; N39.0 Urinary tract infection, site not specified; R65.20 Severe sepsis without septic shock; E86.0 Dehydration; E11.9 Type 2 diabetes mellitus without complications; S01.81XA Laceration without foreign body of other part of head, initial encounter; I11.9 Hypertensive heart disease without heart failure; W18.30XA Fall on same level, unspecified, initial encounter; E03.9 Hypothyroidism, unspecified; T38.0X5A Adverse effect of glucocorticoids and synthetic analogues, initial encounter; I27.20 Pulmonary hypertension, unspecified; Z88.0 Allergy status to penicillin; Z87.442 Personal history of urinary calculi; Z88.5 Allergy status to narcotic agent; Z88.8 Allergy status to other drugs, medicaments and biological substances; Z98.890 Other specified postprocedural states; Z79.899 Other long term (current) drug therapy
CPT/HCPCS: 12002; 36415; 36600; 51703; 70450; 71045; 71260; 80048; 80053; 80202; 81001; 82728; 82803; 82947; 83036; 83605; 83735; 83880; 84100; 84145; 84484; 85025; 85379; 85610; 85730; 86140; 87086; 93005; 93010; 93308; 93321; 93971; 94660; 94761; 94762; 99285-25; A9270; C1751; C9113; J0360; J1100; J1644; J1940; J1956; J2405; J3370; J7030; J7040; J7050; Q9967

== ENCOUNTER 2024-05-12 08:01 | Emergency (ER) | payer OTHER ==
[~2024-05-12] VITALS: Ht 182.9 cm; Wt 181.4 kg
[~2024-05-12 08:01] MED LIST changes: +AMLO10 PO; +Clomiphene Citr50 MG PO; +DECADRON6 M1 PO; +INSULANPEN SC; +LISI20 PO; +METO10 PO; +VENLAFAXINE H37.5 M1 PO; +VITAMIN D31000 UNI1 PO; +XARELTO15 MG PO
[2024-05-12 08:10] VITALS: BP 176/100
[2024-05-12] MEDS ORDERED: Doxycycline Hyclate 100 MG TAB PO ONE (09:00)
[2024-05-12] MEDS ORDERED: Ketorolac Tromethamine 30mg Vial IM ONE (09:00)
[2024-05-12] MEDS ORDERED: DOXY100 PO (09:02)
[2024-05-12] MEDS ORDERED: HYDR1TAB94 PO (09:02)
== END 2024-05-12 09:17 | disposition home or self-care (01) ==
LOC: ER 08:01
DX: L02.31 Cutaneous abscess of buttock (principal); L03.317 Cellulitis of buttock; E11.9 Type 2 diabetes mellitus without complications; I10 Essential (primary) hypertension; G47.33 Obstructive sleep apnea (adult) (pediatric)
CPT/HCPCS: 10061; 96372; 99283-25; A9270; J1885